=== PATIENT | female | born 1990 | race American Indian/Alaskan Native ===

== ENCOUNTER 2018-08-16 12:58 | Emergency (ER) | payer MEDICAID ==
[2018-08-16 13:02] VITALS: BMI 35.7
--- NOTE | 2018-08-16 13:28 | ED PDOC ---
Arrival/HPI - General Chief Complaint: Lower Extremity Problem/Injury Time Seen by Provider: 08/16/18 13:27 Historian: Patient - History of Present Illness Narrative History of Present Illness (Text): 08/16/18 13:27 27 y/o female, no significant pmh, nkda, c/o lt. ankle sprain x 1 day. Pt. stated that she twisted the left ankle last night while partying, twisted, walk home and went to sleep with pain, no fever or chills, no head/neck/back/facial injury, no LOC, no dizziness, no other medical or psychological complaints. Past Medical History - Provider Review Nursing Documentation Reviewed: Yes - Cardiac Hx Cardiac Disorders: No - Pulmonary Hx Respiratory Disorders: No - Neurological Hx Neurological Disorder: No - HEENT Hx HEENT Disorder: No - Renal Hx Renal Disorder: No - Endocrine/Metabolic Hx Endocrine Disorders: No - Hematological/Oncological Hx Blood Disorders: No - Integumentary Hx Dermatological Disorder: No - Musculoskeletal/Rheumatological Hx Musculoskeletal Disorders: No - Gastrointestinal Hx Gastrointestinal Disorders: No - Genitourinary/Gynecological Hx Genitourinary Disorders: Yes Other/Comment: UTERINE FIBROIDS - Psychiatric Hx Psychophysiologic Disorder: No Hx Substance Use: No - Surgical History Other/Comment: FIBROIDS REMOVED Family/Social History - Physician Review Nursing Documentation Reviewed: Yes Family/Social History: Unknown Family HX Smoking Status: Never Smoked Hx Alcohol Use: Yes Frequency of alcohol use: Socially Hx Substance Use: No Allergies/Home Meds Allergies/Adverse Reactions: Allergies No Known Allergies Allergy (Verified 08/16/18 13:04) Review of Systems - Review of Systems Constitutional: absent: Fatigue, Fevers Eyes: absent: Vision Changes ENT: absent: Hearing Changes Respiratory: absent: SOB, Cough Cardiovascular: absent: Chest Pain Gastrointestinal: absent: Abdominal Pain, Diarrhea, Nausea, Vomiting Musculoskeletal: Arthralgias, Joint Swelling. absent: Back Pain, Neck Pain, Myalgias Skin: absent: Rash, Pruritis Neurological: absent: Headache, Dizziness Psychiatric: absent: Anxiety, Depression Physical Exam Pain Distress: Moderate - Systems Exam Head: Present: Atraumatic, Normocephalic, Other (Facial: no bony tenderness or swelling, no abrasion or laceration, no signs of trauma. ). No: Tenderness, Contusion, Swelling, Ecchymosis, Abrasion, Laceration Pupils: Present: PERRL Extroacular Muscles: Present: EOMI Conjunctiva: Present: Normal Ears: Present: NORMAL TM, Normal Canal. No: Erythema Mouth: Present: Moist Mucous Membranes Pharnyx: Present: Normal. No: ERYTHEMA, EXUDATE, TONSILS ENLARGED Nose (External): Present: Atraumatic. No: Abrasion, Contusion, Laceration Nose (Internal): Present: Normal Inspection, No Active Bleeding. No: Rhinorrhea, Septal Hematoma, Epistaxis Neck: Present: Normal Range of Motion Respiratory/Chest: Present: Clear to Auscultation, Good Air Exchange. No: Respiratory Distress, Accessory Muscle Use Cardiovascular: Present: Regular Rate and Rhythm, Normal S1, S2. No: Murmurs Abdomen: No: Tenderness, Distention, Peritoneal Signs, Rebound, Guarding Back: Present: Normal Inspection. No: CVA Tenderness, Midline Tenderness, Paraspinal Tenderness, Pain with Leg Raise, Decubitus Ulcer Upper Extremity: Present: Normal Inspection, NORMAL PULSES, Neurovascularly Intact, Capillary Refill < 2s, Norm 2-Pt Discrimination. No: Cyanosis, Edema, Normal ROM, Tenderness, Swelling, Erythema, Temperature Abnormalties, Deformity Lower Extremity: Present: Normal Inspection, NORMAL PULSES, Normal ROM, Neurovascularly Intact, Capillary Refill < 2 s, Other (Lt. ankle/foot: +ttp on bilateral ankle with tenderess on the distal fibula region, skin intact, no laceration or abrasion, no foot tenderness or swelling, FROM without limitation, sensation intact, motor 5/5, +DPPT pulses, capillary refill< 2 seconds, neuro vascular intact. ). No: Edema, Deformity, Temperature Abnormalties Neurological: Present: GCS=15, CN II-XII Intact, Speech Normal, Motor Func Grossly Intact, Gait Normal, Memory Normal Skin: Present: Warm, Dry, Normal Color. No: Rashes Psychiatric: Present: Alert, Oriented x 3, Normal Insight, Normal Concentration Medical Decision Making ED Course and Treatment: 08/16/18 13:36 -Urine hcg -Lt. ankle xray -Toradol IM -Observe and reassess 08/16/18 14:25 -Urine hcg is negative. -Lt. ankle xray Acute oblique comminuted mildly displaced fracture in the mid diaphysis of fibula with 1 cortex width lateral displacement without significant angulation. Moderate periarticular soft tissue swelling. -Lt. tibial fibula show Acute oblique comminuted mildly displaced fracture in the distal diaphysis of fibula. -DR. Jung, orthopedic supervisor reclamation paged, pending for call back 08/16/18 15:03 -I spoke to Dr. Petty, discussed about the xray and he reviewed it, recommend posterior splint and outpatient surgery but obtain the basic preop labs for him as he would discussed about surgical option tomorrow. -Posterior splint applied by me with neurovascular intact, discussed about the consult, and agreed on the plan of care. -Labs/pt/ptt ordered for Dr. jung. Dr. Jung would follow up the lab work for her tomorrow. -Discharge home with motrin, posterior splint, crutches, follow up with orthopedic Dr. Jung tomorrow for follow up, return to the ER for any new or worsening signs or symptoms. 08/16/18 16:04 -Labs are non significant -Chest xray show No active pulmonary disease. - RAD Interpretation Radiology Orders: 08/16/18 13:27 ANKLE LEFT 3 VIEWS ROUTINE [RAD] Stat Lt. ankle xray: Date of service: 08/16/2018 PROCEDURE: Left Ankle Radiographs. HISTORY: lt. ankle injury COMPARISON: None available. FINDINGS: BONES: There is an of acute oblique comminuted mildly displaced fracture in the mid diaphysis of the fibula with 1 cortex with lateral displacement without significant angulation. Bone alignment and mineralization are normal. JOINTS: Ankle mortise maintained. Talar dome intact SOFT TISSUES: There is moderate periarticular soft tissue swelling OTHER FINDINGS: None. IMPRESSION: Acute oblique comminuted mildly displaced fracture in the mid diaphysis of fibula with 1 cortex width lateral displacement without significant angulation. Moderate periarticular soft tissue swelling. Lt. tibial/fibula xray: Date of service: 08/16/2018 PROCEDURE: Radiographs of the left tibia and fibula. HISTORY: fracture? COMPARISON: None available. TECHNIQUE: Frontal and lateral views obtained. FINDINGS: BONES: Acute oblique comminuted mildly displaced fracture in the distal diaphysis of the fibula. Bone alignment and mineralization are normal. JOINT SPACES: Unremarkable. OTHER FINDINGS: None. IMPRESSION: Acute oblique comminuted mildly displaced fracture in the distal diaphysis of fibula. Chest xray: Date of service: 08/16/2018 HISTORY: medical clearance COMPARISON: Normal FINDINGS: LUNGS: The lungs are well inflated and clear. PLEURA: No pleural effusions or pneumothorax. CARDIOVASCULAR: The heart is normal in size. No aortic atherosclerotic calcification present. OSSEOUS STRUCTURES: Within normal limits for the patient's age. VISUALIZED UPPER ABDOMEN: Normal. OTHER FINDINGS: None. IMPRESSION: No active pulmonary disease. 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 Disposition/Present on Arrival - Present on Arrival Any Indicators Present on Arrival: No History of DVT/PE: No History of Uncontrolled Diabetes: No Urinary Catheter: No History of Decub. Ulcer: No History Surgical Site Infection Following: None - Disposition Have Diagnosis and Disposition been Completed?: Yes Diagnosis: Fibula fracture Disposition: HOME/ ROUTINE Disposition Time: 13:37 Patient Plan: Discharge Patient Problems: Current Active Problems Problem Status Onset Fibula fracture Acute Condition: IMPROVED Additional Instructions: -Discharge home with motrin, posterior splint, crutches, follow up with orthopedic Dr. Jung tomorrow for follow up, return to the ER for any new or worsening signs or symptoms. Prescriptions: Ibuprofen [Motrin] 600 mg PO QID PRN #30 tab PRN Reason: Other Referrals: Mandeep Elias, DO [Staff Provider] - Follow up with primary Forms: [facility] [facility] (Georgian), WORK NOTE
[2018-08-16 14:39] VITALS: BP 130/98; PULSE 87; RESP 18; TEMP 98.2; O2SAT 100
[2018-08-16] MEDS ORDERED: Oxycodone/Acetaminophen 5/325 mg Tab PO STA (15:06)
--- NOTE | 2018-08-16 15:12 | RAD ---
Date of service: 08/16/2018 PROCEDURE: Left Ankle Radiographs. HISTORY: lt. ankle injury COMPARISON: None available. FINDINGS: BONES: There is an of acute oblique comminuted mildly displaced fracture in the mid diaphysis of the fibula with 1 cortex with lateral displacement without significant angulation. Bone alignment and mineralization are normal. JOINTS: Ankle mortise maintained. Talar dome intact SOFT TISSUES: There is moderate periarticular soft tissue swelling OTHER FINDINGS: None. IMPRESSION: Acute oblique comminuted mildly displaced fracture in the mid diaphysis of fibula with 1 cortex width lateral displacement without significant angulation. Moderate periarticular soft tissue swelling.
--- NOTE | 2018-08-16 15:13 | RAD ---
Date of service: 08/16/2018 PROCEDURE: Radiographs of the left tibia and fibula. HISTORY: fracture? COMPARISON: None available. TECHNIQUE: Frontal and lateral views obtained. FINDINGS: BONES: Acute oblique comminuted mildly displaced fracture in the distal diaphysis of the fibula. Bone alignment and mineralization are normal. JOINT SPACES: Unremarkable. OTHER FINDINGS: None. IMPRESSION: Acute oblique comminuted mildly displaced fracture in the distal diaphysis of fibula.
--- NOTE | 2018-08-16 15:25 | RAD ---
Date of service: 08/16/2018 HISTORY: medical clearance COMPARISON: Normal FINDINGS: LUNGS: The lungs are well inflated and clear. PLEURA: No pleural effusions or pneumothorax. CARDIOVASCULAR: The heart is normal in size. No aortic atherosclerotic calcification present. OSSEOUS STRUCTURES: Within normal limits for the patient's age. VISUALIZED UPPER ABDOMEN: Normal. OTHER FINDINGS: None. IMPRESSION: No active pulmonary disease.
[2018-08-16 15:41] LABS: BASO # 0.04 K/mm3 (0.0-2.0); BASO % 0.5 % (0.0-3.0); EOS % 0.1 % (1.5-5.0); GRAN # 5.93 (1.4-6.5); GRAN % 67.4 % (50.0-68.0); HEMOGLOBIN 12.8 g/dL (12.0-16.0); LYMPH # 2.1 (1.2-3.4); LYMPH % 23.6 % (22.0-35.0); MEAN CELL VOLUME 77.2 fl (80.0-105.0); MEAN CORPUSCULAR HEMOGLOBIN 26.5 pg (25.0-35.0); MEAN CORPUSCULAR HGB CONC 34.3 g/dl (31.0-37.0); MEAN PLATELET VOLUME 10.2 fl (7.0-11.0); MONO # 0.7 (0.1-0.6); MONO % 8.4 % (1.0-6.0); RBC 4.83 10^6/uL (3.5-6.1); RED CELL DISTRIBUTION WIDTH 14.1 % (11.5-14.5); WHITE BLOOD COUNT 8.8 10^3/uL (4.5-11.0)
[2018-08-16 15:50] LABS: INR 1.14; PARTIAL THROMBOPLASTIN TIME 24.5 Seconds (25.1-36.5)
[2018-08-16 15:53] LABS: ALB/GLOB RATIO 1.2 (1.1-1.8); ALBUMIN 4.7 g/dL (3.0-4.8); ALT/SGPT 26 U/L (7-56); AST/SGOT 32 U/L (14-36); BLOOD UREA NITROGEN 15 mg/dL (7-21); CALCIUM 9.4 mg/dL (8.4-10.5); GFR NON-AFRICAN AMERICAN > 60
== END 2018-08-16 16:21 | disposition home or self-care (01) ==
LOC: ED 12:58
DX: S82.452A Displaced comminuted fracture of shaft of left fibula, initial encounter for closed fracture (principal); X50.1XXA Overexertion from prolonged static or awkward postures, initial encounter; Y92.89 Other specified places as the place of occurrence of the external cause
CPT/HCPCS: 71045; 73590; 73610; 80053; 85025; 85610; 85730; 86850; 86900; 96372; 99283; J1885